=== PATIENT | male | born 1975 | race African-American/Black ===

== ENCOUNTER 2016-06-02 13:57 | Inpatient (IN) | payer MEDICAID ==
[~2016-06-02] VITALS: Ht 180.3 cm; Wt 82.9 kg
[~2016-06-02 13:57] MED LIST: [UNRECOGNIZED DRUG - REMARK]
[2016-06-02] MEDS ORDERED: HYDROmorphone HCL 2 MG/ML VL IV ONE (14:15)
[2016-06-02] MEDS ORDERED: ONDANSETRON HCL 4 MG/2 ML VIAL IV ONE (14:15)
[2016-06-02] MEDS ORDERED: SODIUM CHLORIDE 0.9% 500 ML IV ONE (14:19)
[2016-06-02] MEDS ORDERED: ACETAMINOPHEN 325 MG TAB PO ONE (14:30)
[2016-06-02 15:04] LABS: Hematocrit 43.5 % (41.0-53.0); Hemoglobin 14.1 g/dL (13.5-17.5); Mean Corpuscular Hemoglobin 27.2 pg (28.0-32.0); Mean Corpuscular Hgb Conc. 32.4 g/dL (32.0-36.0); Mean Corpuscular Volume 83.9 fL (80.0-100.0); Mean Platelet Volume 8.3 fL (7.4-10.4); Platelet Count (auto) 160 10^3/uL (140-450); Red Cell Distribution Width 15.2 % (11.6-16.0); SUSPECT VIEW TRANSMISSION; White Blood Cell 15.5 10^3/uL (4.4-10.8)
[2016-06-02 15:10] LABS: Metamyelocytes % 0; Myelocytes % 0; Promyelocytes % 0; Reactive Lymphocytes 0
[2016-06-02 15:18] LABS: Albumin 2.9 g/dL (3.4-5.0); BUN/Creatinine Ratio 11.2; Calcium 8.1 mg/dL (8.5-10.1); Potassium 3.6 mmol/L (3.5-5.1)
[2016-06-02 15:22] LABS: Bilirubin, Total 0.3 mg/dL (0.2-1.0); Total Protein 6.7 g/dL (6.4-8.2)
[2016-06-02 15:52] LABS: REFLEX LACTIC ACID YES OR NO YES
[2016-06-02] MEDS ORDERED: LORazepam 2MG/ML-1ML VIAL IV PRN (16:15)
[2016-06-02] MEDS ORDERED: LEVOFLOXACIN 750MG 150 ML IV ONE (16:15)
[2016-06-02] MEDS ORDERED: NITROGLYCERIN 0.4 MG SL TAB SL PRN (16:15)
[2016-06-02] MEDS ORDERED: MORPHINE SULF INJ 2 MG/ML SYRINGE 1ML IV PRN ×2 (16:15)
[2016-06-02] MEDS ORDERED: PANTOPRAZOLE SODIUM 40 MG/10 ML VIAL IV ONE (16:15)
[2016-06-02] MEDS: SODIUM CHLORIDE 0.9% 1,000 ML IV SCH (17:25)
[2016-06-02 17:30] LABS: Platelet Estimate Adequate; RBC Morphology Normal
[2016-06-02 17:58] LABS: REFLEX LACTIC ACID YES OR NO NO
[2016-06-02] MEDS: LINEZOLID 600MG/300ML 300 ML IV SCH (18:50)
[2016-06-02] MEDS ORDERED: PIPERACILLIN-TAZOB 3.375GM 100 ML IV ONE (19:00)
[2016-06-02 19:48] VITALS: BP 131/84
[2016-06-02] MEDS: PROMETHAZINE HCL 25 MG/ML 1ML IV PRN (21:44)
[2016-06-02] MEDS: ACETAMINOPHEN 325 MG TAB PO PRN (22:16)
[2016-06-03] MEDS: PIPERACILLIN-TAZOB 3.375GM 100 ML IV SCH ×4 (00:12→18:15)
[2016-06-03] MEDS: SODIUM CHLORIDE 0.9% 1,000 ML IV SCH ×3 (00:12→15:55)
[2016-06-03 01:23] LABS: Hematocrit 38.9 % (41.0-53.0); Hemoglobin 12.7 g/dL (13.5-17.5)
[2016-06-03] MEDS: LINEZOLID 600MG/300ML 300 ML IV SCH ×4 (04:45→16:45)
[2016-06-03 04:51] VITALS: BP 132/89
[2016-06-03] MEDS: ACETAMINOPHEN 325 MG TAB PO PRN ×2 (05:56→15:59)
[2016-06-03 06:10] LABS: Hematocrit 38.2 % (41.0-53.0); Hemoglobin 12.5 g/dL (13.5-17.5); Mean Corpuscular Hemoglobin 27.3 pg (28.0-32.0); Mean Corpuscular Hgb Conc. 32.6 g/dL (32.0-36.0); Mean Corpuscular Volume 83.7 fL (80.0-100.0); Mean Platelet Volume 8.1 fL (7.4-10.4); Platelet Count (auto) 140 10^3/uL (140-450); SUSPECT VIEW TRANSMISSION
[2016-06-03 06:32] LABS: Calcium 7.9 mg/dL (8.5-10.1); Potassium 3.7 mmol/L (3.5-5.1)
[2016-06-03 06:35] LABS: Albumin 2.4 g/dL (3.4-5.0); BUN/Creatinine Ratio 12.9
[2016-06-03 06:38] LABS: Bilirubin, Total 0.3 mg/dL (0.2-1.0); Metamyelocytes % 0; Myelocytes % 0; Promyelocytes % 0; Reactive Lymphocytes 0; Total Protein 6.3 g/dL (6.4-8.2)
[2016-06-03 07:19] LABS: Platelet Estimate Decreased
[2016-06-03 09:00] VITALS: BP 110/60
[2016-06-03] MEDS ORDERED: GASTROGRAFIN 30 ML SOL ONE (09:34)
[2016-06-03] MEDS ORDERED: GASTROGRAFIN 120 ML SOL ONE (09:42)
[2016-06-03] MEDS: PANTOPRAZOLE SODIUM 40 MG/10 ML VIAL IV SCH (10:00)
[2016-06-03 13:00] VITALS: BP 112/69
[2016-06-03 15:16] LABS: Hematocrit 42.9 % (41.0-53.0); Hemoglobin 13.6 g/dL (13.5-17.5)
[2016-06-03 17:00] VITALS: BP 119/63
[2016-06-03] MEDS: PROMETHAZINE HCL 25 MG/ML 1ML IV PRN ×2 (17:18→21:58)
[2016-06-03] MEDS: FLUCONAZOLE 200MG/100ML 100 ML IV SCH ×2 (20:41→21:38)
[2016-06-03 22:00] VITALS: BP 140/78
[2016-06-03] MEDS: ACETAMINOPHEN 500 MG TAB PO PRN (23:12)
[2016-06-04] MEDS: PIPERACILLIN-TAZOB 3.375GM 100 ML IV SCH ×5 (00:07→23:39)
[2016-06-04] MEDS: SODIUM CHLORIDE 0.9% 1,000 ML IV SCH ×4 (00:12→23:39)
[2016-06-04] MEDS: LINEZOLID 600MG/300ML 300 ML IV SCH ×2 (04:12→16:35)
[2016-06-04 05:07] LABS: Basophils # (auto) 0 uL; Basophils % (auto) 0.3 % (0.0-2.0); Eosinophils # (auto) 0.1 uL; Eosinophils % (auto) 0.8 % (0.0-7.0); Lymphocytes # (auto) 1.1 uL; Lymphocytes % (auto) 9.4 % (10.0-50.0); Mean Corpuscular Hemoglobin 27.1 pg (28.0-32.0); Mean Corpuscular Hgb Conc. 32.4 g/dL (32.0-36.0); Mean Corpuscular Volume 83.5 fL (80.0-100.0); Mean Platelet Volume 7.9 fL (7.4-10.4); Monocytes % (auto) 8.7 % (0.0-12.0); Neutrophils # (auto) 9.7 uL; Neutrophils % (auto) 80.8 % (37.0-80.0); Platelet Count (auto) 124 10^3/uL (140-450); Red Cell Distribution Width 13.8 % (11.6-16.0); SUSPECT VIEW TRANSMISSION; White Blood Cell 11.9 10^3/uL (4.4-10.8)
[2016-06-04 05:42] VITALS: BP 133/75
[2016-06-04 05:56] LABS: Urine Bilirubin Negative (Negative); Urine Color Yellow (Yellow); Urine Glucose Normal (Normal); Urine Granular Cast FEW /lpf (0); Urine Hyaline Cast FEW /lpf (0 - 2); Urine Ketone Negative (Negative); Urine Mucus FEW (None Seen); Urine Nitrite Negative (Negative); Urine RBC 243 /hpf (0 - 3); Urine Urobilinogen Normal (Negative)
[2016-06-04 05:59] LABS: Urine Blood 3+ /uL (Negative)
[2016-06-04] MEDS: PANTOPRAZOLE SODIUM 40 MG/10 ML VIAL IV SCH (09:45)
[2016-06-04] MEDS ORDERED: FLUCONAZOLE 200MG/100ML 100 ML IV SCH (10:00)
[2016-06-04] MEDS: ACETAMINOPHEN 500 MG TAB PO PRN (11:55)
[2016-06-04 12:27] VITALS: BP 124/68
[2016-06-04 16:22] VITALS: BP 135/74
[2016-06-04] MEDS: PROMETHAZINE HCL 25 MG/ML 1ML IV PRN (17:53)
[2016-06-04 22:00] VITALS: BP 144/69
[2016-06-05] MEDS: LINEZOLID 600MG/300ML 300 ML IV SCH (03:54)
[2016-06-05 05:53] VITALS: BP 145/81
[2016-06-05] MEDS: PIPERACILLIN-TAZOB 3.375GM 100 ML IV SCH (06:10)
[2016-06-05 06:24] LABS: Basophils # (auto) 0.1 uL; Eosinophils # (auto) 0.1 uL; Eosinophils % (auto) 1.5 % (0.0-7.0); Hemoglobin 12.3 g/dL (13.5-17.5); Lymphocytes # (auto) 1.5 uL; Lymphocytes % (auto) 17.4 % (10.0-50.0); Mean Corpuscular Hemoglobin 27.1 pg (28.0-32.0); Mean Corpuscular Hgb Conc. 32.3 g/dL (32.0-36.0); Mean Corpuscular Volume 84.1 fL (80.0-100.0); Mean Platelet Volume 8.9 fL (7.4-10.4); Monocytes % (auto) 12.4 % (0.0-12.0); Neutrophils # (auto) 5.7 uL; Neutrophils % (auto) 67.7 % (37.0-80.0); Platelet Count (auto) 168 10^3/uL (140-450); Red Cell Distribution Width 15.3 % (11.6-16.0); White Blood Cell 8.4 10^3/uL (4.4-10.8)
[2016-06-05 06:53] LABS: Albumin 2.5 g/dL (3.4-5.0); BUN/Creatinine Ratio 11.1; Bilirubin, Total 0.3 mg/dL (0.2-1.0); Calcium 8.7 mg/dL (8.5-10.1); Potassium 3.7 mmol/L (3.5-5.1); Total Protein 6.9 g/dL (6.4-8.2)
[2016-06-05 09:15] VITALS: BP 132/72
== END 2016-06-05 09:55 | disposition left against medical advice (07) | DRG 720 ==
LOC: EDBD 13:57 → ER 14:08 → TELE 14:09 → TELE-CENTR 19:15
PROVIDERS: ADMIT Internal Medicine; ATTEND Internal Medicine
DX: A41.9 Sepsis, unspecified organism (principal); N17.0 Acute kidney failure with tubular necrosis; I50.9 Heart failure, unspecified; I13.0 Hypertensive heart and chronic kidney disease with heart failure and stage 1 through stage 4 chronic kidney disease, or unspecified chronic kidney disease; E87.1 Hypo-osmolality and hyponatremia; K92.2 Gastrointestinal hemorrhage, unspecified; N28.0 Ischemia and infarction of kidney; M65.9 Synovitis and tenosynovitis, unspecified; L03.115 Cellulitis of right lower limb; N18.9 Chronic kidney disease, unspecified; F12.90 Cannabis use, unspecified, uncomplicated; I89.0 Lymphedema, not elsewhere classified; Z53.21 Procedure and treatment not carried out due to patient leaving prior to being seen by health care provider; R31.9 Hematuria, unspecified; M79.672 Pain in left foot; Z84.89 Family history of other specified conditions
CPT/HCPCS: 36415; 71010; 71020; 73630; 73700; 74176; 74250; 76775; 80053; 81001; 82150; 82570; 83605; 83690; 84156; 85007; 85014; 85018; 85025; 85027; 85045; 85049; 85652; 86141; 86850; 86900; 86901; 87040; 87086; 96365; 96367; 96375; C9113; J1450; J1956; J2405; J2543

== ENCOUNTER 2017-05-22 10:29 | Emergency (ER) | payer MEDICAID ==
[~2017-05-22] VITALS: Ht 182.9 cm; Wt 81.6 kg
[2017-05-22] MEDS ORDERED: SODIUM CHLORIDE 0.9% 1,000 ML IV ONE ×2 (15:22)
[2017-05-22] MEDS ORDERED: KETOROLAC TROMETH 30 MG/ML 1ML VIAL IV ONE ×2 (15:30→21:30)
[2017-05-22 16:10] LABS: Hematocrit 39.1 % (41.0-53.0); Hemoglobin 12.7 g/dL (13.5-17.5); Mean Corpuscular Hemoglobin 27.7 pg (28.0-32.0); Mean Corpuscular Hgb Conc. 32.5 g/dL (32.0-36.0); Mean Corpuscular Volume 85.1 fL (80.0-100.0); Platelet Count (auto) 149 10^3/uL (140-450); Red Blood Cells 4.59 10^6/uL (4.5-5.90); Red Cell Distribution Width 14.8 % (11.8-14.3); White Blood Cell 5.2 10^3/uL (4.4-10.8)
[2017-05-22 16:13] LABS: Band Neutrophils % (manual) 0; Basophils % (manual) 0 (0.0-2.0); Blast Cells 0; Eosinophils % (manual) 0 (0-7); Myelocytes % 0; Promyelocytes % 0; Reactive Lymphocytes 0
[2017-05-22 16:25] LABS: INR 1.07 (0.9-1.15); Partial Thromboplastin Time 25.1 sec (22.64-33.71); Prothrombin Time 11.7 sec (9.37-12.3)
[2017-05-22 16:37] LABS: Lymphocytes % (manual) 16 (10.0-50.0); Metamyelocytes % 2; Monocytes % (manual) 3 (0-12)
[2017-05-22 16:38] LABS: Alanine Aminotransferase 41 U/L (16-61); Albumin 3.8 g/dL (3.4-5.0); Alkaline Phosphatase 90 U/L (45-117); Anion Gap 8 (5-15); Aspartate Aminotransferase 41 U/L (15-37); BUN/Creatinine Ratio 12.2; Bilirubin, Total 0.8 mg/dL (0.2-1.0); Blood Urea Nitrogen 16 mg/dL (7-18); Calcium 8.4 mg/dL (8.5-10.1); Carbon Dioxide 26 mmol/L (21-32); Chloride 102 mmol/L (98-107); GFR African American 78 mL/min; GFR Non-African American 64 mL/min; Glucose 104 mg/dL (74-106); Potassium 3.5 mmol/L (3.5-5.1); Sodium 136 mmol/L (136-145); Total Protein 7.4 g/dL (6.4-8.2)
[2017-05-22] MEDS ORDERED: ACETAMINOPHEN 325 MG TAB PO ONE (19:30)
[2017-05-22] MEDS ORDERED: cefTRIAXone 1GM/10ml IVPUSH 10 ML IV ONE (19:45)
[2017-05-22 20:20] LABS: Urine Bacteria NONE SEEN /hpf (None Seen); Urine Blood 1+ /uL (Negative); Urine Mucus FEW (None Seen); Urine Specific Gravity 1.017 (1.001-1.035); Urine WBC 1 /hpf (0 - 3)
[2017-05-22 20:36] LABS: Alcohol, Urine < 3.0 mg/dL (0-5); Amphetamine Screen, Urine POSITIVE (NEGATIVE); Barbiturate Scree,Urine NEGATIVE (NEGATIVE); Benzodiazephine Screen, Urine NEGATIVE (NEGATIVE); Cannabinoid Screen, Urine POSITIVE (NEGATIVE); Cocaine Screen, Urine NEGATIVE (NEGATIVE); Opiate Scree,Urine NEGATIVE (NEGATIVE); Phencyclidine Screen, Urine NEGATIVE (NEGATIVE)
[2017-05-22 22:10] VITALS: BP 117/62
== END 2017-05-22 22:14 | disposition home or self-care (01) ==
LOC: ER 10:29 → EDBD 10:29 → EDUNIT# 10:29 → ER 22:14
DX: G89.4 Chronic pain syndrome (principal); F17.210 Nicotine dependence, cigarettes, uncomplicated; Z86.718 Personal history of other venous thrombosis and embolism
CPT/HCPCS: 36415; 71045; 80053; 80307; 81001; 83880; 84484; 85007; 85027; 85610; 85730; 96361; 96374; 96375; 99285; J1885; J7030

== ENCOUNTER 2019-07-04 23:47 | Emergency (ER) | payer MEDICAID ==
[~2019-07-04] VITALS: Ht 182.9 cm; Wt 86.2 kg
[2019-07-05 01:14] LABS: Basophils # (auto) 0 uL; Basophils % (auto) 0.9 % (0.0-2.0); Eosinophils # (auto) 0.1 uL; Eosinophils % (auto) 2.2 % (0.0-7.0); Hematocrit 40.7 % (41.0-53.0); Hemoglobin 13.3 g/dL (13.5-17.5); Lymphocytes # (auto) 2.2 uL; Lymphocytes % (auto) 38.3 % (10.0-50.0); Mean Corpuscular Hemoglobin 27.3 pg (28.0-32.0); Mean Corpuscular Hgb Conc. 32.6 g/dL (32.0-36.0); Mean Corpuscular Volume 83.9 fL (80.0-100.0); Monocytes # (auto) 0.5 uL; Monocytes % (auto) 8.9 % (0.0-12.0); Neutrophils # (auto) 2.8 uL; Neutrophils % (auto) 49.7 % (37.0-80.0); Nucleated Red Blood Cells % 0.1 %; Platelet Count (auto) 200 10^3/uL (140-450); Red Blood Cells 4.85 10^6/uL (4.5-5.90); Red Cell Distribution Width 14.8 % (11.8-14.3); White Blood Cell 5.7 10^3/uL (4.4-10.8)
[2019-07-05 01:28] LABS: Albumin 3.7 g/dL (3.4-5.0); Calcium 8.6 mg/dL (8.5-10.1); Potassium 3.5 mmol/L (3.5-5.1)
[2019-07-05 01:30] LABS: BUN/Creatinine Ratio 12.8
[2019-07-05 01:32] LABS: Bilirubin, Total 0.2 mg/dL (0.2-1.0); Total Protein 7.8 g/dL (6.4-8.2)
[2019-07-05] MEDS ORDERED: MORPHINE SULFATE 4 MG/ML SYR/VIAL IV ONE (02:00)
[2019-07-05] MEDS ORDERED: cefTRIAXone 1GM/50ML D5W 50 ML IV ONE (02:00)
[2019-07-05] MEDS ORDERED: ONDANSETRON HCL 4 MG/2 ML VIAL IV ONE (02:00)
[2019-07-05] MEDS: VANCOMYCIN 1GM/250ML 250 ML IV ONE ×2 (02:13→03:34)
[2019-07-05 05:00] VITALS: BP 149/93
== END 2019-07-05 05:34 | disposition home or self-care (01) ==
LOC: ER 23:47
DX: S90.922A Unspecified superficial injury of left foot, initial encounter (principal); F17.210 Nicotine dependence, cigarettes, uncomplicated; X58.XXXA Exposure to other specified factors, initial encounter; Y93.89 Activity, other specified; Y92.89 Other specified places as the place of occurrence of the external cause; Y99.8 Other external cause status
CPT/HCPCS: 36415; 73700; 80053; 85025; 87077; 87186; 87205; 96365; 96366; 96368; 96375; 99284; J0696; J2270; J2405; J3370